=== PATIENT | female | born 1975 | race Asian ===

== ENCOUNTER 2019-08-02 09:53 | Emergency (ER) | payer MEDICAID, OTHER ==
[~2019-08-02] VITALS: Ht 160 cm; Wt 59.5 kg
[~2019-08-02 09:53] MED LIST: ALD250 GTB; AMOX500C2 PO; CALC600T5 PO; IBUP-1542 PO; PREN1TAB62 PO
[2019-08-02 09:57] VITALS: BP 159/78; Ht 160 cm; Wt 59.5 kg
[2019-08-02 11:35] VITALS: PULSE 89; RESP 16
== END 2019-08-02 11:38 | disposition home or self-care (01) ==
LOC: FTE 09:53
DX: H92.02 Otalgia, left ear (principal); E11.9 Type 2 diabetes mellitus without complications; I10 Essential (primary) hypertension
CPT/HCPCS: 99283